=== PATIENT | male | born 1950 | race Caucasian/White ===

== ENCOUNTER 2023-12-23 13:25 | Emergency (ER) | payer MEDICARE ==
[2023-12-23] MEDS ORDERED: Sodium Chloride 0.9% 500 ML 500 ML IV ONE (14:15)
[2023-12-23 14:19] VITALS: PULSE 94; O2SAT 98
[2023-12-23 14:20] LABS: Absolute Neutrophil Ct (ANC) 5.21 x10^3/uL (1.4-6.9); BASOPHIL % 0.3 % (0.0-0.4); Basophil (Absolute #) 0.02 x10^3/uL (0-0.4); Eosinophil (Absolute #) 0.07 x10^3/uL (0-0.5); Hematocrit 43.1 % (42-50); Hemoglobin 14.7 g/dL (12.5-18.0); IMMATURE GRAN # 0.02 x10^3u/L (0.00-0.03); IMMATURE GRAN % 0.3 % (0.00-0.4); Lymphocyte (Absolute #) 1.27 x10^3/uL (1.0-4.6); Lymphocytes % 17.9 % (24.0-44.0); Mean Cell Volume 91.9 fL (78-100); Mean Corpuscular Hemoglobin 31.3 pg (26-32); Mean Corpuscular Hgb Concent. 34.1 g/dL (32-36); Mean Platelet Volume 10.4 fL (7.5-11.0); Monocyte (Absolute #) 0.51 x10^3/uL (0.0-1.3); Monocytes % 7.2 % (0.0-12.0); Neutrophil % 73.3 % (36.0-66.0); Platelet Count 175 x10^3/uL (150-450); Red Blood Count 4.69 x10^6/uL (4.1-5.6); Red Cell Distribution Width 12.4 % (11.5-14.0); White Blood Count 7.1 x10^3/uL (4.0-10.5)
[2023-12-23 14:49] VITALS: BP 89/60; RESP 18
[2023-12-23 14:52] LABS: ALBUMIN 3.3 g/dL (3.5-5.0); ANION GAP 12.2 MEQ/L (5-15); BILIRUBIN,TOTAL 1.6 mg/dL (0.2-1.3); Calcium 8.8 mg/dL (8.4-10.2); EST GLOMERULAR FILTRATION RATE 34.8 ML/MIN; Total Protein 5.8 g/dL (6.3-8.2)
[2023-12-23 15:01] LABS: Potassium 2.8 mmol/L (3.5-5.1)
[2023-12-23 15:13] VITALS: TEMP 97.6
--- NOTE | 2023-12-23 15:37 | ERPHSYRPT ---
- History of Present Illness Time Seen by Provider: 12/23/23 13:30 Source: patient, EMS, senior living records Patient Subjective Stated Complaint: Fall Triage Nursing Assessment: Patient brought into ED per EMS and transferred to bed with assist of 3. Patient A+O X 3. Patient's skin pink, warm and dry. Patient resides at [facility]" and had a fall. Patient states he slipped out of his chair and landed on floor. Patient denies pain or discomfort. Nurse Helen from [facility] stated patient was found lying on floor with head underneath bed. Patient on blood thinner and family requested for patient to come to ED for eval. Physician History: 73 years old male resident of senior living with multiple medical problems including CVA with right-sided weakness, on Eliquis, hypertension, hyperlipidemia, Parkinson's disease is brought in the ER after he slid from his chair on the floor and hit his head. Patient had no loss of consciousness. Christine alegre was found lying on the floor by RN at a senior living. Patient reports having mild head and neck area pain and some pain in the chest wall. Denies any difficulty breathing. Patient denies any abdominal pain nausea or vomiting. Patient reports "I was not getting food and I tried to get my food from the table which was too far and accidentally slipped/slid down". Patient is not confused or altered and answering all questions appropriately. Allergies/Adverse Reactions: Iodinated Contrast Media Allergy (Verified 12/23/23 14:18) Home Medications: Acetaminophen 325 mg [Tylenol 325 mg] 2 tab PO Q4H PRN PRN 12/23/23 [History] Apixaban [Eliquis] 1 tab PO BID 12/23/23 [History] Carbidopa/Levodopa [Carbidopa-Levodopa 25-100 Tab] 1 tab PO TID 12/23/23 [History] Docusate Sodium 100 mg [Docusate Sodium 100 MG] 1 cap PO BID PRN 12/23/23 [History] Dorzolamide/Timolol/Pf [Dorzolamide-Timolol 2%-0.5%] 1 drop DROPS BID 12/23/23 [History] Escitalopram Oxalate [Lexapro] 1 tab PO DAILY 12/23/23 [History] Famotidine 20 mg [Pepcid 20 MG] 1 tab PO BID 12/23/23 [History] Hydroxyzine HCl 25 mg [Atarax 25 mg] 1 tab PO Q8H PRN PRN 12/23/23 [History] Lidocaine 1 patch TOP DAILY 12/23/23 [History] Losartan Potassium 50 mg [Cozaar 50 MG] 100 mg PO DAILY 12/23/23 [History] Mirtazapine 1 tab PO HS 12/23/23 [History] Montelukast Sodium 10 mg [Singulair 10 MG] 1 tab PO DAILY 12/23/23 [History] Ondansetron [Ondansetron Odt ] 1 tab PO Q8H PRN PRN 12/23/23 [History] Pregabalin 50 mg [Lyrica 50MG] 1 cap PO Q8H PRN PRN 12/23/23 [History] Quetiapine Fumarate [Seroquel] 1 tab PO BID 12/23/23 [History] Temazepam 15 mg [Restoril 15 MG] 1 cap PO HS 12/23/23 [History] Trazodone HCl 50 mg [Desyrel 50 mg] 1 tab PO HS 12/23/23 [History] carvediloL [Coreg] 1 tab PO BID 12/23/23 [History] hydroCHLOROthiazide [Hydrochlorothiazide] 1 cap PO DAILY 12/23/23 [History] Hx Influenza Vaccination/Date Given: Yes Hx Pneumococcal Vaccination/Date Given: Yes Immunizations Up to Date: Yes Travel Risk - International Travel Have you traveled outside of the country in past 3 weeks: No - Emerging Infectious Disease Are you exhibiting symptoms associated with any current EIDs: No - Review of Systems Constitutional: No Symptoms Eyes: No Symptoms Ears, Nose, & Throat: No Symptoms Respiratory: No Symptoms Cardiac: No Symptoms Abdominal/Gastrointestinal: No Symptoms Musculoskeletal: Arthralgias, Back Pain, Neck Pain Skin: No Symptoms Neurological: Headache Endocrine: No Symptoms Hematologic/Lymphatic: Easy Bleeding Immunological/Allergic: No Symptoms - Past Medical History Pertinent Past Medical History: Yes Neurological History: Dementia ENT History: Glaucoma Cardiac History: Arrhythmia, Hypertension Musculoskeletal History: Osteoarthritis GI Medical History: GERD Psycho-Social History: Depression Other Medical History: A-fib, Carpal Tunnel, Parkinsons, dysphagia, hemochromatosis, insomnia, fluid retention, agitation, allergies, TMJ, embolism and thrombosis of unspecified vein. All diagnosis taken from transfer paperwork sent to hospital with patient by [facility]. - Past Surgical History Past Surgical History: No Other Surgical History: Unable to obtain surgical history from patient at this time. Poor historian. Came from [facility] and surgical histroy was not sent with chart. - Social History Smoking Status: Never smoker Exposure to second hand smoke: No Drug Use: none - Nursing Vital Signs Nursing Vital Signs: Initial Vital Signs Temperature 97.6 F 12/23/23 13:25 Pulse Rate 112 H 12/23/23 13:25 Respiratory Rate 20 12/23/23 13:25 Blood Pressure 89/60 12/23/23 13:25 O2 Sat by Pulse Oximetry 98 12/23/23 13:25 Pain Scale Pain Intensity 0 - Riky Coma Score Best Eye Response ([place]): (4) open spontaneously Best Verbal Response (Riky): (5) oriented Best Motor Response ([place]): (6) obeys commands Riky Total: 15 - Physical Exam General Appearance: no apparent distress, alert Head Injury: no evidence of injury Eye Exam: PERRL/EOMI ENT Exam: airway nml, No evidence of ENT injury, No dental injury Neck Exam: supple, trachea midline, normal alignment, c-collar in place Respiratory/Chest Exam: chest tenderness (Minimal anterior chest wall tenderness with no crepitus.), normal breath sounds, No respiratory distress Cardiovascular Exam: regular rate/rhythm, tachycardia Gastrointestinal Exam: soft, normal bowel sounds, No tenderness Back Exam: normal inspection Extremity Exam: normal inspection, normal range of motion (Except right upper extremity) Neurologic Exam: alert, oriented x 3, cooperative, high heel builder II-XII nml as tested, normal mood/affect, nml cerebellar function, sensation nml, motor deficits (Right upper extremity) Skin Exam: normal color SpO2 Interpretation: normal SpO2: 98 O2 Delivery: Room Air Ordered Tests: Medication Summary Discontinued Medications Generic Name Dose Route Start Last Admin Trade Name Freq PRN Reason Stop Dose Admin Sodium Chloride 500 mls @ 500 mls/hr 12/23/23 14:15 Sodium Chloride 0.9% 500 Ml IV 12/23/23 15:14 .Q1H ONE Lab/Rad Data: Laboratory Result Diagrams 12/23/23 14:00 12/23/23 14:00 Laboratory Results 12/23/23 12/23/23 12/23/23 Range/Units 14:00 14:00 14:00 WBC 7.1 (4.0-10.5) x10^3/uL RBC 4.69 (4.1-5.6) x10^6/uL Hgb 14.7 (12.5-18.0) g/dL Hct 43.1 (42-50) % MCV 91.9 (78-100) fL MCH 31.3 (26-32) pg MCHC 34.1 (32-36) g/dL RDW 12.4 (11.5-14.0) % Plt Count 175 (150-450) x10^3/uL MPV 10.4 (7.5-11.0) fL Gran % 73.3 H (36.0-66.0) % Immature Gran % (Auto) 0.3 (0.00-0.4) % Nucleat RBC Rel Count 0.0 (0.00-0.1) % Eos # (Auto) 0.07 (0-0.5) x10^3/uL Immature Gran # (Auto) 0.02 (0.00-0.03) x10^3u/L Absolute Lymphs (auto) 1.27 (1.0-4.6) x10^3/uL Absolute Monos (auto) 0.51 (0.0-1.3) x10^3/uL Absolute Nucleated RBC 0.00 (0.00-0.01) x10^3u/L Lymphocytes % 17.9 L (24.0-44.0) % Monocytes % 7.2 (0.0-12.0) % Eosinophils % 1.0 (0.00-5.0) % Basophils % 0.3 (0.0-0.4) % Absolute Granulocytes 5.21 (1.4-6.9) x10^3/uL Basophils # 0.02 (0-0.4) x10^3/uL Sodium 137 (135-145) mmol/L Potassium 2.8 L* (3.5-5.1) mmol/L Chloride 99 (98-107) mmol/L Carbon Dioxide 29 (22-30) mmol/L Anion Gap 12.2 (5-15) MEQ/L BUN 38 H (9-20) mg/dL Creatinine 2.00 H (0.66-1.25) mg/dL Estimated GFR 34.8 ML/MIN Glucose 124 H (74-106) mg/dL Calcium 8.8 (8.4-10.2) mg/dL Total Bilirubin 1.60 H (0.2-1.3) mg/dL AST 24 (17-59) U/L ALT 13 (0-50) U/L Alkaline Phosphatase 78 (38-126) U/L Troponin I < 0.012 (0.000-0.034) ng/mL Serum Total Protein 5.8 L (6.3-8.2) g/dL Albumin 3.3 L (3.5-5.0) g/dL - Progress Progress Note: 12/23/23 15:33 73 years old is evaluated in the ER for fall from chair on the ground with inability to get up on its own. Patient is on blood thinners Eliquis. He has a nonfocal neuroexam except for old findings of right upper weakness for which patient is in rehab/therapy at senior living. Patient is not confused or altered and explains why and how he fell as he was trying to get closer to the food. He has no loss of consciousness. Complaining of mild headache but does not want any pain medication. Is placed in a c-collar, ordered CT head cervical spine and chest. Patient went to CAT scan table and then decided not to have anything done. member of technical staff has called me and I have taken RN with me and tried to convince patient and explained him the reason behind all these imaging and workup but he does not want anything to be done. Patient is told that he is on Eliquis with increased risk for bleeding and also with a fall in his age could have some cervical spine injury but patient states "if it is my time nobody can stop me". Patient wants to sign out AMA. Discussed again with patient about the risk of leaving without workup which would not only delay the diagnosis but also worsening of condition but still adamant about leaving. Meanwhile baseline lab work came back and has a potassium of 2.8, and recommended potassium repl acement which she does not want it now. We will call senior living about the low potassium. He is advised to return to ER for any worsening Counseled pt/family regarding: lab results, diagnosis, rad results Medical Desision Making - Diagnostic Testing Diagnostic test were ordered, analyzed, and reviewed by me: Yes - Departure Departure Disposition: AMA Clinical Impression: Scalp contusion, Cervical strain, Fall Condition: Fair Critical Care Time: No Referrals: YANCY GUO OF [Primary Care Provider] - Follow up/PCP as directed
== END 2023-12-23 15:15 | disposition left against medical advice (07) ==
LOC: ED 13:25
DX: S00.03XA Contusion of scalp, initial encounter (principal); S16.1XXA Strain of muscle, fascia and tendon at neck level, initial encounter; W07.XXXA Fall from chair, initial encounter; Y92.122 Bedroom in nursing home as the place of occurrence of the external cause; I10 Essential (primary) hypertension; Z79.01 Long term (current) use of anticoagulants; Z79.899 Other long term (current) drug therapy
CPT/HCPCS: 36000; 36415; 80053; 84484; 85025; 93005; 99284

== ENCOUNTER 2024-01-16 23:28 | Emergency (ER) | payer MEDICARE ==
[2024-01-16 23:54] VITALS: TEMP 98
--- NOTE | 2024-01-17 00:21 | ERPHSYRPT ---
- History of Present Illness Time Seen by Provider: 01/16/24 23:45 Source: patient Exam Limitations: no limitations Patient Subjective Stated Complaint: Patient has no complaints. He denies any pain. Nurse, Thomas from [facility] patient rolled out of his low bed on to mats next to the bed this evening. The fall was unwitnessed so neuro checks were initiated. Thomas reports noting that patient's right pupil is more sluggish than the left eye. Reports Dr. Watson wanted patient sent to ER for evaluation and treatment. Triage Nursing Assessment: Patient arrived by ambulance. He is awake and alert but not completely oriented; diagnosis of dementia. He is oriented to name and place; confused to time and situation. Pupils examined and noted to be equal at this time. Right hand is slightly swollen; CMS WNL but c/o pain when moving hand too much. No skin alterations noted at this time. Physician History: 73-year-old male history of dementia presents to the emergency department via EMS for evaluation. Patient was at [facility] rolled off a low-profile bed. [facility] was doing neurochecks. They felt his pupils were sluggish and sent him here for CT head. Patient denies hitting his head. However he complains of some right hand discomfort. Patient is currently on Eliquis for atrial fibrillation. Patient denies chest pain. No shortness of breath. No nausea vomiting or diaphoresis. Patient voices no other complaints or concerns at this time. Portions of this note were created with voice recognition technology. There may be grammatical, spelling, punctuation or sound alike errors Timing/Duration: today Severity: moderate Modifying Factors: Improves With: nothing Associated Symptoms: denies symptoms Allergies/Adverse Reactions: Iodinated Contrast Media Allergy (Verified 01/16/24 23:30) Home Medications: Acetaminophen 325 mg [Tylenol 325 mg] 650 mg PO Q4H PRN PRN 12/23/23 [History] Apixaban [Eliquis] 5 mg PO BID 12/23/23 [History] Carbidopa/Levodopa [Carbidopa-Levodopa 25-100 Tab] 25 - 100 mg PO TID 12/23/23 [History] Docusate Sodium 100 mg [Docusate Sodium 100 MG] 100 mg PO BID PRN 12/23/23 [History] Escitalopram Oxalate [Lexapro] 10 mg PO DAILY 12/23/23 [History] Famotidine 20 mg [Pepcid 20 MG] 20 mg PO BID 12/23/23 [History] Hydroxyzine HCl 25 mg [Atarax 25 mg] 25 mg PO Q8H PRN PRN 12/23/23 [History] Lidocaine 1 patch TOP DAILY 12/23/23 [History] Losartan Potassium 50 mg [Cozaar 50 MG] 100 mg PO DAILY 12/23/23 [History] Montelukast Sodium 10 mg [Singulair 10 MG] 10 mg PO DAILY 12/23/23 [History] Ondansetron [Ondansetron Odt ] 1 tab PO Q8H PRN PRN 12/23/23 [History] Pregabalin 50 mg [Lyrica 50MG] 50 mg PO Q8H PRN PRN 12/23/23 [History] Trazodone HCl 50 mg [Desyrel 50 mg] 50 mg PO HS 12/23/23 [History] carvediloL [Coreg] 12.5 mg PO BID 12/23/23 [History] hydroCHLOROthiazide [Hydrochlorothiazide] 12.5 mg PO DAILY 12/23/23 [History] Donepezil HCl [Aricept] 5 mg PO HS 01/16/24 [History] Memantine HCl 5 mg PO BID 01/16/24 [History] Mirtazapine 30 mg [Remeron 30 mg] 30 mg PO HS 01/17/24 [History] Montelukast Sodium 10 mg [Singulair 10 MG] 10 mg PO DAILY 01/17/24 [History] Pantoprazole Sodium [Protonix] 40 mg PO DAILY 01/17/24 [History] Potassium Chloride 40 meq PO TID 01/17/24 [History] Quetiapine Fumarate [Seroquel] 75 mg PO BID 01/17/24 [History] Tamsulosin HCl 0.4 mg [Flomax 0.4 MG] 0.4 mg PO HS 01/17/24 [History] Temazepam 15 mg [Restoril 15 MG] 15 mg PO HS PRN 01/17/24 [History] Hx Tetanus, Diphtheria Vaccination/Date Given: Yes Hx Influenza Vaccination/Date Given: Yes Hx Pneumococcal Vaccination/Date Given: Yes Immunizations Up to Date: Yes Travel Risk - International Travel Have you traveled outside of the country in past 3 weeks: No - Emerging Infectious Disease Are you exhibiting symptoms associated with any current EIDs: No - Review of Systems Constitutional: No Symptoms, No Fever, No Chills Eyes: No Symptoms Ears, Nose, & Throat: No Symptoms Respiratory: No Symptoms, No Cough, No Dyspnea Cardiac: No Symptoms, No Chest Pain, No Edema, No Syncope Abdominal/Gastrointestinal: No Symptoms, No Abdominal Pain, No Nausea, No Vomiting, No Diarrhea Genitourinary Symptoms: No Symptoms, No Dysuria Musculoskeletal: No Symptoms, No Back Pain, No Neck Pain Skin: No Symptoms, No Rash Neurological: No Symptoms, No Dizziness, No Focal Weakness, No Sensory Changes Psychological: No Symptoms Endocrine: No Symptoms Hematologic/Lymphatic: No Symptoms Immunological/Allergic: No Symptoms All Other Systems: Reviewed and Negative - Past Medical History Pertinent Past Medical History: Yes Neurological History: Dementia ENT History: Glaucoma Cardiac History: Arrhythmia, Hypertension Musculoskeletal History: Osteoarthritis GI Medical History: GERD Psycho-Social History: Depression, Other Other Medical History: A-fib, Carpal Tunnel, Parkinsons, dysphagia, hemochromatosis, insomnia, fluid retention, agitation, allergies, TMJ, embolism and thrombosis of unspecified vein, psychotic disorder with delusions, . All diagnosis taken from transfer paperwork sent to hospital with patient by [facility]. - Past Surgical History Past Surgical History: No Other Surgical History: Unable to obtain surgical history from patient at this time. Poor historian. Came from [facility] and surgical histroy was not sent with chart. - Social History Smoking Status: Never smoker Exposure to second hand smoke: No Drug Use: none - Nursing Vital Signs Nursing Vital Signs: Initial Vital Signs Temperature 98 F 01/16/24 23:31 Pulse Rate 91 H 01/16/24 23:31 Respiratory Rate 12 01/16/24 23:31 Blood Pressure 124/87 01/16/24 23:31 O2 Sat by Pulse Oximetry 98 01/16/24 23:31 Pain Scale Pain Intensity 0 - Physical Exam General Appearance: no apparent distress, alert, other (Patient appears somewhat pale) Eye Exam: PERRL/EOMI, eyes nml inspection Ears, Nose, Throat Exam: normal ENT inspection, TMs normal, pharynx normal, moist mucous membranes Neck Exam: normal inspection, non-tender, supple, full range of motion Respiratory Exam: normal breath sounds, lungs clear, airway intact, No respirato ry distress Cardiovascular Exam: regular rate/rhythm, normal heart sounds, normal peripheral pulses Gastrointestinal/Abdomen Exam: soft, normal bowel sounds, No tenderness, No mass Back Exam: normal inspection, normal range of motion, No CVA tenderness, No vertebral tenderness Extremity Exam: normal inspection, normal range of motion, pelvis stable Neurologic Exam: alert, oriented x 3, cooperative, normal mood/affect, sensation nml, No motor deficits Skin Exam: normal color, warm, dry, No rash Lymphatic Exam: No adenopathy SpO2 Interpretation: normal SpO2: 98 O2 Delivery: Room Air - Course Nursing assessment & vital signs reviewed: Yes EKG Interpreted by Me: RATE (98), A-fib, NORMAL AXIS, NORMAL INTERVALS - Radiology Exams Hand X-ray Interpretation: Interpreted by me (Osteopenia, no fractures or dislocations) - CT Exams Head CT Interpretation: Tele-radiologist Report (No acute intracranial abnormality) Ordered Tests: Active Orders 24 hr Category Date Time Status Floor Attendant STAT Care 01/17/24 00:22 Active EKG-ER Only STAT Care 01/17/24 00:22 Active Pulse Oximetry (ED) STAT Care 01/17/24 00:22 Active HAND (MINIMUM 3 VIEWS) Stat Exams 01/16/24 23:39 Taken HEAD WITHOUT CONTRAST [CT] Stat Exams 01/16/24 23:38 Completed CBC W DIFF Stat Lab 01/17/24 00:46 Completed TROPONIN Q4H Lab 01/17/24 00:46 Completed Lab/Rad Data: Laboratory Result Diagrams 01/17/24 00:46 01/17/24 00:40 Laboratory Results 01/17/24 01/17/24 01/17/24 Range/Units 00:46 00:46 00:40 WBC 6.3 (4.0-10.5) x10^3/uL RBC 4.10 (4.1-5.6) x10^6/uL Hgb 12.9 (12.5-18.0) g/dL Hct 39.8 L (42-50) % MCV 97.1 (78-100) fL MCH 31.5 (26-32) pg MCHC 32.4 (32-36) g/dL RDW 14.1 H (11.5-14.0) % Plt Count 165 (150-450) x10^3/uL MPV 8.6 (7.5-11.0) fL Gran % 70.0 H (36.0-66.0) % Immature Gran % (Auto) 0.5 H (0.00-0.4) % Nucleat RBC Rel Count 0.0 (0.00-0.1) % Eos # (Auto) 0.05 (0-0.5) x10^3/uL Immature Gran # (Auto) 0.03 (0.00-0.03) x10^3u/L Absolute Lymphs (auto) 1.24 (1.0-4.6) x10^3/uL Absolute Monos (auto) 0.55 (0.0-1.3) x10^3/uL Absolute Nucleated RBC 0.00 (0.00-0.01) x10^3u/L Lymphocytes % 19.7 L (24.0-44.0) % Monocytes % 8.7 (0.0-12.0) % Eosinophils % 0.8 (0.00-5.0) % Basophils % 0.3 (0.0-0.4) % Absolute Granulocytes 4.42 (1.4-6.9) x10^3/uL Basophils # 0.02 (0-0.4) x10^3/uL Sodium Direct 143 (138-146) mmol/L Potassium 3.8 (3.5-4.9) mmol/L Chloride 102 (98-109) mmol/L Carbon Dioxide 26 (24-29) mmol/L Venous BUN 14 (8-26) mg/dL Creatinine 1.1 (0.6-1.3) mg/dL Glucose 95 (70-105) mg/dL Ionized Calcium 1.15 (1.12-1.32) mmol/L Troponin I < 0.012 (0.000-0.033) ng/mL - Progress Progress: improved Progress Note: 73-year-old male presents to our ED for evaluation status post fall. Patient rolled out of a low-profile bed. Patient complained of right hand pain. Patient on Eliquis for A-fib. CT head negative for acute intracranial path ology. X-ray of the involved hand is negative for fracture dislocation. Patient observed vital stable. Patient ready to be discharged however transportation is not immediately available. We will have to wait for the patient for transportation to become available. Patient reassessed at change of shift. Patient is functioning at his baseline. He is alert conversant and now requesting a meal. Patient may be released immediately upon transportation availability. Portions of this note were created with voice recognition technology. There may be grammatical, spelling, punctuation or sound alike errors Complexity problem addressed is moderate acute complicated No critical care time Complex of data reviewed and analyzed is moderate. Test ordered test reviewed results analyzed and correlated clinically with history and physical exam. Risk of complication and or risk of morbidity/mortality patient management is low Vital stable. Time spent to discharge patient is approximately 20 minutes. Plan of care established for shared decision making. No social determinants of health present impede follow-up. Portions of this note were created with voice recognition technology. There may be grammatical, spelling, punctuation or sound alike errors 01/17/24 06:19 Counseled pt/family regarding: lab results, diagnosis, need for follow-up, rad results - Departure Departure Disposition: Home Clinical Impression: Fall, Hand contusion Condition: Stable Critical Care Time: No Referrals: YANCY GUO OF [Primary Care Provider] - Follow up/PCP as directed Additional Instructions: Discharge/Care Plan ADALID ZHU was seen on 01/17/24 in the Emergency Room. The patient was counseled regarding Diagnosis,Lab results, Imaging studies, need for follow up and when to return to the Emergency Room. Prescriptions given: Discharge Note I have spoken with the patient and/or caregivers. I have explained the patient's condition, diagnosis and treatment plan based on the information available to me at this time. I have answered the patient's and/or caregiver's questions and addressed any concerns. The patient and/or caregivers have as good understanding of the patient's diagnosis, condition and treatment plan as can be expected at this point. The vital signs have been stable. The patient's condition is stable and appropriate for discharge from the emergency department. The patient will pursue further outpatient evaluation with the primary care physician or other designated or consulting physician as outlined in the discharge instructions. The patient and/or caregivers are agreeable to this plan of care and follow-up instructions have been explained in detail. The patient and/or caregivers have received these instruction. The patient/and or caregivers are aware that any significant change in condition or worsening of symptoms should prompt an immediate return to this or the closest emergency department or call 911.
[2024-01-17 00:48] LABS: Absolute Neutrophil Ct (ANC) 4.42 x10^3/uL (1.4-6.9); BASOPHIL % 0.3 % (0.0-0.4); Basophil (Absolute #) 0.02 x10^3/uL (0-0.4); Eosinophil % 0.8 % (0.00-5.0); Eosinophil (Absolute #) 0.05 x10^3/uL (0-0.5); Hematocrit 39.8 % (42-50); Hemoglobin 12.9 g/dL (12.5-18.0); IMMATURE GRAN # 0.03 x10^3u/L (0.00-0.03); IMMATURE GRAN % 0.5 % (0.00-0.4); Lymphocyte (Absolute #) 1.24 x10^3/uL (1.0-4.6); Lymphocytes % 19.7 % (24.0-44.0); Mean Cell Volume 97.1 fL (78-100); Mean Corpuscular Hemoglobin 31.5 pg (26-32); Mean Corpuscular Hgb Concent. 32.4 g/dL (32-36); Mean Platelet Volume 8.6 fL (7.5-11.0); Monocyte (Absolute #) 0.55 x10^3/uL (0.0-1.3); Monocytes % 8.7 % (0.0-12.0); Platelet Count 165 x10^3/uL (150-450); Red Cell Distribution Width 14.1 % (11.5-14.0); White Blood Count 6.3 x10^3/uL (4.0-10.5)
[2024-01-17 00:51] LABS: ISTAT CREA 1.1 mg/dL (0.6-1.3); ISTAT K 3.8 mmol/L (3.5-4.9); ISTAT iCA 1.15 mmol/L (1.12-1.32)
--- NOTE | 2024-01-17 01:10 | XRAY ---
CLINICAL HISTORY: fall, on bloodthinners COMPARISON: none TECHNIQUE: Multiple axial images are obtained from the skull base to the vertex without contrast. CT scan was performed according to ALARA (as low as reasonable achievable). FINDINGS: There is cerebral atrophy. No evidence of space occupying lesion, hemorrhage, edema, mass effect, midline shift, extra axial collection, or hydrocephalus is noted. Basal cisterns are symmetric and normal in size and configuration. There are scattered periventricular hypodensities as can be seen with chronic microvascular ischemic changes. The rust-white matter differentiation is preserved. Visualized paranasal sinuses and mastoid air cells are well aerated. Orbital contents are within normal limits. Bony structures are intact IMPRESSION: 1. No evidence of acute traumatic intracranial abnormality is demonstrated. 2. Chronic microvascular ischemic changes. 3. Cerebral atrophy. Electronically Signed by: Jhon Vega MD. (01/17/2024 01:06:43 EDT)
[2024-01-17 06:22] VITALS: O2SAT 98
--- NOTE | 2024-01-17 08:43 | XRAY ---
Indication: Swelling following fall. Comparison: None 3 view right hand demonstrates osteopenia, mild/moderate 1st metacarpal multangular scaphoid degenerative changes with heterotopic ossifications, radiocarpal joint space narrowing, old distal radius fracture, and minimal radial artery calcifications. No other bony, articular, or soft tissue abnormalities.
[2024-01-17 10:41] VITALS: BP 139/96; PULSE 104; RESP 13
== END 2024-01-17 10:42 | disposition home or self-care (01) ==
LOC: ED 23:28
DX: S60.221A Contusion of right hand, initial encounter (principal); M79.641 Pain in right hand; W06.XXXA Fall from bed, initial encounter; Z79.01 Long term (current) use of anticoagulants; Z79.899 Other long term (current) drug therapy; F03.90 Unspecified dementia, unspecified severity, without behavioral disturbance, psychotic disturbance, mood disturbance, and anxiety
CPT/HCPCS: 36415; 70450; 73130; 80047; 84484; 85025; 93005; 93041; 94760; 99284